=== PATIENT | female | born 1985 | race Native Hawaiian/Other Pacific Islander ===

== ENCOUNTER 2020-04-28 06:45 | Emergency (ER) | payer OTHER ==
[~2020-04-28] VITALS: Ht 162.6 cm; Wt 79.4 kg
[2020-04-28 07:00] VITALS: TEMP 98.7
[2020-04-28 07:56] LABS: POTASSIUM 3.5 mmol/L (3.6-5.2)
[2020-04-28 07:58] LABS: PLATELET COUNT 226 K/uL (152-353)
[2020-04-28 09:04] VITALS: BP 138/65
== END 2020-04-28 09:04 | disposition home or self-care (01) ==
LOC: ED 06:45
PROVIDERS: Emergency Medicine Emergency Medical Services
DX: N20.1 Calculus of ureter (principal); R10.32 Left lower quadrant pain; R31.9 Hematuria, unspecified
CPT/HCPCS: 36415; 80053; 81000; 81025; 85027; 87086; 87088; 96360; 96375; 99284; J1885; J2405

== ENCOUNTER 2021-12-18 07:21 | Emergency (ER) | payer BC ==
[~2021-12-18] VITALS: Ht 162.6 cm; Wt 79.4 kg
[2021-12-18 07:23] VITALS: BP 155/93; TEMP 97.2
== END 2021-12-18 08:15 | disposition home or self-care (01) ==
LOC: ED 07:21
DX: K08.89 Other specified disorders of teeth and supporting structures (principal); K01.1 Impacted teeth
CPT/HCPCS: 96372; 99282; J1885